=== PATIENT | female | born 1985 | race Caucasian/White ===

== ENCOUNTER 2022-12-21 14:46 | Emergency (ER) | payer MEDICAID ==
[~2022-12-21] VITALS: Ht 165.1 cm; Wt 53.1 kg
== END 2022-12-21 17:29 | disposition home or self-care (01) ==
LOC: ED 14:46
DX: Z20.2 Contact with and (suspected) exposure to infections with a predominantly sexual mode of transmission (principal); Z88.1 Allergy status to other antibiotic agents
CPT/HCPCS: 81003; 84703; 99283

== ENCOUNTER 2023-03-31 19:34 | Emergency (ER) | payer OTHER ==
[~2023-03-31] VITALS: Ht 165.1 cm; Wt 54.0 kg
--- OUTSIDE RECORDS SUMMARY | ~2023-03-31 | XMS | Continuity of Care Document ---
Demographics + + + | Address | [address] | | | [place] [address] | + + + | Preferred Language | Unknown | + + + | Marital Status | Never | + + + | Presybeterian Affiliation | Unknown | + + + | Race | White | + + + | Ethnic Group | Not or | + + + Author + + + | Author | [facility] | + + + | Organization | [facility] | + + + | Address | [address] | | | [place] [address] | + + + | Phone | | + + + Care Team Providers + + + + | Care Mammal Control Agent Name | Role | Phone | + + + + Unavailable | Unavailable | + + + + Unavailable | Unavailable | + + + + Allergies and Intolerances + + + + + + | date | description | facility | reaction | severity | + + + + + + | (no date) | Ciprofloxacin | [facility] | (no reaction) | (no severity) | | [facility] | | | + + + + + + | (no date) | Rash | [facility] | (no reaction) | (no severity) | | | | [facility] | | | + + + + + + | (no date) | Ciprofloxacin | [facility] | (no reaction) | (no severity) | | | [facility] | | | + + + + + + | (no date) | Ciprofloxacin | [facility] | (no reaction) | (no severity) | | | | [facility] | | | + + + + + + Encounters No information. Functional Status No information. Immunizations No information. Medications No information. Problems + + + + | date | description | facility | + + + + | 2022-11-30 11:46 | NONSPECIFIC REACTION TO | [facility] | | | SKIN TEST W/O ACTIVE | | | | TUBERCULOSIS | | + + + + | 2022-12-21 00:00 | Concern about sexually | [facility] | | | transmitted disease in | | | | female without diagnosis | | + + + + Procedures No information. Results/Labs +--------+--------+ +---------+--------+---------+ | test | date | facility | value | unit | notes | +--------+--------+ +---------+--------+---------+ + + | Result panel 1 | + + + + + + + + + | | 2022-12-21 | [facility] | YELLOW | (missing) | (missing) | | (unavailable | 16:15:07 [facility] | | | | + + + + + + + + + | Result panel 2 | + + + + + + + + + | | 2022-12-21 | [facility] | NORMAL | (missing) | (missing) | | (unavailable | 16[facility]15:07 [facility] | | | | + + + + + + + + + | Result panel 3 | + + + + + + + + + | | 2022-12-21 | [facility] | NEGATIVE | (missing) | (missing) | | (unavailable | 16::07 [facility] | | | | + + + + + + + + + | Result panel 4 | + + + + + + + + + | | 2022-12-21 | [facility] | NEGATIVE | (missing) | (missing) | | (unavailable | [facility]15:07 [facility] | | | | + + + + + + + + + | Result panel 5 | + + + + + + + + + | | 2022-12-21 | [facility] | NEGATIVE | (missing) | (missing) | | (unavailable | [facility]15:07 [facility] | | | | + + + + + + + + + | Result panel 6 | + + + + + +---------+ + + | | 2022-12-21 | [facility] | CLEAR | (missing) | (missing) | | (unavailable | [facility]15:07 [facility] | | | | + + + +---------+ + + + + | Result panel 7 | + + + + + + + + + | | 2022-12-21 | [facility] | NEGATIVE | (missing) | (missing) | | (unavailable | [facility]15:07 [facility] | | | | + + + + + + + + + | Result panel 8 | + + + + + + + + + | | 2022-12-21 | [facility] | NEGATIVE | (missing) | (missing) | | (unavailable | [facility]15:07 [facility] | | | | + + + + + + + + + | Result panel 9 | + + + + + + + + + | | 2022-12-21 | [facility] | NEGATIVE | (missing) | (missing) | | (unavailable | [facility]15:07 [facility] | | | | + + + + + + + + + | Result panel 10 | + + + + + +---------+ + + | | 2022-12-21 | [facility] | 1.025 | (missing) | (missing) | | (unavailable | [facility]15:07 [facility] | | | | + + + +---------+ + + + + | Result panel 11 | + + + + + + + + + | | 2022-12-21 | [facility] | NEGATIVE | (missing) | (missing) | | (unavailable | [facility]15:07 [facility] | | | | + + + + + + + + + | Result panel 12 | + + + + + +-------+ + + | | 2022-12-21 | [facility] | 6.0 | (missing) | (missing) | | (unavailable | [facility]15:07 [facility] | | | | + + + +-------+ + + + + | Result panel 13 | + + + + + + + + + | | 2022-12-21 | [facility] | NEGATIVE | (missing) | (missing) | | (unavailable | [facility]:07 [facility] | | | | + + + + + + + Social History + + + + | date | description | facility | + + + + | 2022-12-21 00:00 | Unknown if ever smoked | [facility] | + + + + Vital Signs + + +---------+---------+ | date | measurement | value | units | + + +---------+---------+ | 2022-12-21 00:00 | BMI | 19.5 | kg/m2 | + + +---------+---------+ | 2022-12-21 00:00 | BP_diastolic | 83 | mmHg | + + +---------+---------+ | 2022-12-21 00:00 | BP_systolic | 122 | mmHg | + + +---------+---------+ | 2022-12-21 00:00 | heart_rate | 72 | /min | + + +---------+---------+ | 2022-12-21 00:00 | height_metric | 165.1 | cm | + + +---------+---------+ | 2022-12-21 00:00 | height_standard | 65 | in | + + +---------+---------+ | 2022-12-21 00:00 | o2_saturation | 99 | % | + + +---------+---------+ | 2022-12-21 00:00 | respiration_rate | 16 | /min | + + +---------+---------+ | 2022-12-21 00:00 | temperature_metric | 36.67 | C | | | | | | + + +---------+---------+ | 2022-12-21 00:00 | | 98 | F | | | temperature_standar | | | | | d | | | + + +---------+---------+ | 2022-12-21 00:00 | weight_metric | 53.07 | kg | + + +---------+---------+ | 2022-12-21 00:00 | weight_standard | 117 | lb | + + +---------+---------+"
--- OUTSIDE RECORDS SUMMARY | ~2023-03-31 | XMS | Continuity of Care Document ---
Demographics + + + | Address | [address] | | | [place] [address] | + + + | Preferred Language | Unknown | + + + | Marital Status | Never | + + + | Episcopal Affiliation | Unknown | + + + | Race | White | + + + | Ethnic Group | Not or | + + + Author + + + | Author | [facility] | + + + | Organization | [facility] | + + + | Address | [address] | | | [place] [address] | + + + | Phone | | + + + Care Team Providers + + + + | Care Legal Advisor Name | Role | Phone | + [...] 00:00 | Concern about sexually | [facility] | | | transmitted disease in [...] | Unknown if ever smoked | [facility] | + + + + Vital [...]
[2023-03-31 23:21] VITALS: BP 117/77
== END 2023-03-31 23:22 | disposition home or self-care (01) ==
LOC: ED 19:34
DX: N73.9 Female pelvic inflammatory disease, unspecified (principal); Z88.1 Allergy status to other antibiotic agents
CPT/HCPCS: 81003; 84703; 87210; 99284; A9270

== ENCOUNTER 2023-05-20 15:45 | Emergency (ER) | payer OTHER ==
[~2023-05-20] VITALS: Ht 165.1 cm; Wt 52.8 kg
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
--- OUTSIDE RECORDS SUMMARY | ~2023-05-20 | XMS | Continuity of Care Document ---
Demographics + + + | Address | [address] | | | [place] [address] | + + + | Preferred Language | Unknown | + + + | Marital Status | Never | + + + | Orthodox Affiliation | Unknown | + + + | Race | White | + + + | Ethnic Group | Not or | + + + Author + + + | Author | [facility] | + + + | Organization | [facility] | + + + | Address | [address] | | | [place] [address] | + + + | Phone | | + + + Care Team Providers + + + + | Care Geographic Information Systems Engineer Name | Role | Phone | + [...] 00:00 | Concern about sexually | [facility] | | | transmitted disease in | [...] 2023-03-31 00:00 | Acute pelvic inflammatory | [facility] | | | disease | | + [...] (missing) | | (unavailable | 15:26:07 | [facility] | | | | | ) | [...] 00:00 | Unknown if ever smoked | [facility] | + + + + | 2023-03-31 00:00 | Unknown if ever smoked | [facility] | + + + + | 2023-04-13 00:00 | Unknown if ever smoked | [facility] | + + + + Vital Signs [...]
[2023-05-20 20:14] LABS: BILIRUBIN, URINE NEGATIVE (negative); BLOOD/HGB, URINE NEGATIVE (Negative); KETONE, URINE NEGATIVE (Negative); LEUK ESTERASE, URINE TRACE (negative); NITRITE, URINE NEGATIVE (negative)
[2023-05-20 20:19] LABS: EPITHELIAL CELLS, URINE SQUAMOUS 3+ /lpf (0-1+); RED BLOOD CELLS, URINE 0-1 /hpf (0-5)
[2023-05-20 20:20] LABS: REFLEX CULTURE, URINE No (No)
[2023-05-20 21:15] VITALS: BP 131/80
== END 2023-05-20 21:18 | disposition home or self-care (01) ==
LOC: ED 15:45
PROVIDERS: Emergency Medicine
DX: T76.21XA Adult sexual abuse, suspected, initial encounter (principal); Z20.2 Contact with and (suspected) exposure to infections with a predominantly sexual mode of transmission; Z88.1 Allergy status to other antibiotic agents
CPT/HCPCS: 81001; 84703; 96372; 99285; A9270; J0696